=== PATIENT | male | born 1965 | race Caucasian/White ===

== ENCOUNTER 2024-01-08 13:19 | Outpatient (CLI) | payer MEDICARE, SELFPAY ==
--- NOTE | 2024-01-08 13:04 | MR_ITS ---
WS: [id number] MRI RIGHT ANKLE WITHOUT CONTRAST. COMPARISON: None Multiplanar, multisequence imaging is performed without contrast. History: Achilles tendinitis. Swelling off-and-on. There is marked thickening and heterogeneity involving the Achilles tendon. Approximately 7 cm cephal ad to the insertion site of the Achilles tendon there is marked thickening of the tendon up to 1.6 cm in diameter. There is rounding of the normal concave border. There is intrasubstance increased T2 si gnal and a few cystic areas within the tendon itself. These findings are all consistent with marked t endinopathy. There is no full-thickness tear. There is a cystic fluid signal in the tendon which may represent a very tiny partial tear. Very slight edema in Kager fat pad. No significant retrocalcaneal bursitis. There is no marrow edema in the bones of the ankle. Plantar aponeurosis is normal. There is a tiny os teochondral defect along the medial tibial plafond. No marrow edema. Extensor and flexor tendons are normal. Anterior and posterior talofibular ligaments are normal. Anterior and posterior tibiofibular ligaments are normal. Syndesmosis is normal. Normal deltoid ligament. Calcaneofibular ligament is sma ll caliber but no secondary findings to suggest an abnormality. MR/MR ankle RT wo con* [id number] IMPRESSION: 1. There is marked tendinopathy involving the Achilles tendon. No full-thickne ss tear. Thickened heterogeneous signal centrally. 2. No additional acute findings. No marrow edema.
== END 2024-01-08 13:20 | disposition home or self-care (01) ==
LOC: RAD 13:19
PROVIDERS: Visit Provider Family Medicine
DX: M67.88 Other specified disorders of synovium and tendon, other site (principal); M76.61 Achilles tendinitis, right leg
CPT/HCPCS: 73721

== ENCOUNTER 2025-06-08 14:49 | Emergency (ER) | payer MEDICARE, SELFPAY ==
[2025-06-08 14:50] VITALS: BP 164/95; PULSE 72; TEMP 36.9; O2SAT 99; BMI 24.5
--- NOTE | 2025-06-08 15:42 | W.ED.BACK ---
HPI - Back Pain/Injury General: Chief Complaint: Back Pain/Injury Stated Complaint: lower back pain Time Seen by Provider: 06/08/25 15:32 History of Present Illness: Patient is a 60-year-old gentleman without medical issues that reports to the emergency room with back pain. Context: 2 days ago, [place], when his feet were wrapped around some weeds, and it made him contort turning towards the left, and fall on his low left mid back. Patient stated he is having issues with pain when he strains to attempt a bowel movement. His pain is then noted in this L1 mid scapular area. There is no contusion/ecchymosis. He did not have a specific injury. He is able to pass gas. His pain is when he strains that he feels it radiate here. It has been 4 days since he has had a bowel movement. Home treatment: Prune juice, stool softener. No fevers. No nausea or vomiting. No dysuria. No flank pain Associated symptoms: Deny abdominal pain, chills, fever(s), nausea or vomiting Related Data Previous Rx's ?Medication ?Instructions ?Recorded diclofenac sodium 75 mg 75 mg PO BID PRN pain #30 tabs 06/08/25 tablet,delayed release methocarbamol 750 mg tablet 750 mg PO Q8H PRN muscle spasm #30 06/08/25 tabs Allergies Allergy/AdvReac Type Severity Reaction Status Date / Time No Known Allergies Allergy Verified 06/08/25 15:00 Review of Systems General: Reports: 10 or more systems reviewed and unremarkable except in HPI and below Const: Denies: fever(s) or chills Eyes: Denies: change in vision or blurry vision ENMT: Denies: throat pain or mouth pain Card: Denies: chest pain or palpitations GI: Reports: constipation and pain on defecation; Denies: abdominal pain, nausea, vomiting, dysphagia, heartburn, early satiety or GI cramping : Denies: flank pain or difficulty urinating Skin/Breast: Denies: rash or pruritus Neuro: Denies: headache(s) or numbness in extremities Psych: Denies: anxiety or depression Physical Exam Const: COMMON NORMALS: no acute distress, average body habitus and patient oriented x3 GENERAL APPEARANCE: cooperative, comfortable, well kempt and well developed HENMT: COMMON NORMALS: normocephalic, atraumatic and Normal external nose present HEAD & SCALP: normal to inspection, normocephalic and atraumatic FACE & SINUS: normal facial exam, sinuses nontender and face symmetric NOSE: Normal external nose present, Normal nares present and No nasal polyps present MOUTH: Normal oral and palatal mucosa present, lip normal and tongue normal THROAT: posterior oropharynx normal, tonsils normal and uvula midline Lymph: LYMPHATIC: no lymphadenopathy noted Chest: COMMONS NORMALS: normal inspection of the chest and normal palpation of entire chest wall Resp: COMMON NORMALS: normal respiratory effort, No retractions, No use of accessory muscles and clear to auscultation bilaterally EFFORT & INSPECTION: Yes able to speak in complete sentences AUSCULTATION: clear to auscultation bilaterally Cardio: COMMON NORMALS: regular rate and regular rhythm RATE: regular rate RHYTHM: regular rhythm GI: COMMON NORMALS: Normal to inspection, nondistended, normoactive bowel sounds present, Soft to palpation, non-tender, No hepatosplenomegaly present, no masses and no bruits PALPATION: Yes Soft to palpation and Yes No hepatosplenomegaly present : COMMON NORMALS: Yes no CVA tenderness BLADDER/KIDNEY EXAM: Yes no CVA tenderness Back/Pelvis: COMMON NORMALS: no CVA tenderness and thoracic and lumbar spine normal to inspection THORACIC SPINE/UPPER BACK: Yes normal to inspection and Yes thoracic ROM normal LUMBAR SPINE/LOWER BACK: Yes normal to inspection, Yes lumbar ROM normal, No pain with ROM, No lumbar spinal tenderness, No paraspinal muscle tenderness, No paraspinal muscle spasm and Yes straight leg raise negative bilaterally PELVIS: Yes buttocks normal BACK IMAGE (MALE):  1. area of strain, cannot reproduce with PE Neuro: COMMON NORMALS: patient oriented x3 Psych: APPEARANCE: Yes well kempt Skin: COMMON NORMALS: no rashes or lesions noted, no wounds and turgor normal GENERAL SKIN EXAM: no rashes or lesions noted and turgor normal Course Vital Signs: Vital signs: Vital Signs Temperature 98.5 F 06/08/25 14:50 Pulse Rate 72 06/08/25 14:50 Blood Pressure 164/95 06/08/25 14:50 Pulse Oximetry 99 06/08/25 14:50 Oxygen Delivery Me thod Room Air 06/08/25 14:50 MDM - Back Pain/Injury Medical Decision Making Patient is a pleasant 60-year-old male presents after falling in the [place] 2 days ago. On exam, I cannot elicit tenderness. Patient's main complaint is pain with straining to attempt a bowel movement. Patient states no bowel movement x 4 days with trying stool softener, and prune juice. Advised patient to obtain senna S, probiotic. Will give him relief with Toradol, Norflex x 1, and send diclofenac, methocarbamol to the pharmacy. Will advise a full or clear liquid diet until bowel movement. Discussed low threshold to return back to the ED for expanding workup and considering CT of the abdomen and pelvis Medical Records I reviewed the patient's medical records. No previous visit No radiology studies performed this visit Discharge Plan Discharge Patient Disposition: Home Clinical Impression: Strain of lumbar region Qualifiers: Encounter type: initial encounter Qualified Code(s): S39.012A - Strain of muscle, fascia and tendon of lower back, initial encounter Condition: Stable Prescriptions: New methocarbamol 750 mg tablet 750 mg PO Q8H PRN (Reason: muscle spasm) Qty: 30 0RF diclofenac sodium 75 mg tablet,delayed release (DR/EC) 75 mg PO BID PRN (Reason: pain) Qty: 30 0RF Discharge Orders: Discharge ED (Routine); Ordered 06/08/25 Ordered By: Lizzy Powell Referrals: Francesco Pa MD [Primary Care Provider, Family Practice] Discharge Diet: Clear Liquid and Full LIquid Patient Instructions: Contusion in Adults (ED), Patient Portal & Luigi Instructions Activity Restrictions/Additional Instructions: - Change her diet to a clear liquid diet and a full diet until you have a bowel movement that is satisfactory - We discussed: Obtaining senna S for a laxative, taking 2 at once. As well, start a probiotic for natural ways to have a bowel movement. Typically use 2 at once. - At the pharmacy: Methocarbamol, diclofenac. Methocarbamol is a powerful muscle relaxer. You may cut in half to avoid excessive sedation side effects and make sure you tolerate. Diclofenac is a pain and anti-inflammatory medication. Use as directed. - As we discussed, low threshold to return to the ED for expanding your workup if you have ongoing issues. Thank you for choosing [facility] for your healthcare needs today. You have been screened and evaluated and felt safe for discharge. Health conditions do change or evolve sometimes and as such it is important that you follow up with your Primary Doctor to be re checked, 3-5 days is a general good time frame for follow up. You are always welcome to return to the ED for re assessment if your symptoms are worsening or you have new concern Print Language: Citizen Of [place] Coding Level of Care Code ED [employer]illing Machine Operator for Zurdo Emanule
[2025-06-08] MEDS: orphenadrine 30 mg/mL Inj 2 mL 60 MG IM (15:48)
== END 2025-06-08 16:13 | disposition home or self-care (01) ==
PROVIDERS: Emergency Provider Physician Assistant; PCP Family Medicine
DX: S39.012A Strain of muscle, fascia and tendon of lower back, initial encounter (principal); W19.XXXA Unspecified fall, initial encounter
CPT/HCPCS: 96372; 99284; J1885; J2360